=== PATIENT | female | born 1980 | race Caucasian/White ===

== ENCOUNTER 2017-04-06 12:23 | Emergency (ER) | payer OTHER ==
[~2017-04-06] VITALS: Ht 165.1 cm; Wt 95.9 kg
[~2017-04-06 12:23] MED LIST: ALBUAER2 INH; CYAN100020 PO; NAPR220T PO; PRLSR20 PO
[2017-04-06 12:45] VITALS: TEMP 37; Ht 165.1 cm; Wt 95.9 kg
[2017-04-06 13:29] VITALS: BP 122/76; PULSE 76; O2SAT 99
--- NOTE | 2017-04-06 13:50 | DIAGNOSTIC IMAGING REPORT ---
R HAND MIN 3 VIEWS ROUTINE HISTORY: 36 years-old Female R hand pain acute right hand pain COMPARISON: None available TECHNIQUE: 3 views of the right hand FINDINGS: There is no acute fracture, subluxation or significant degenerative changes. No opaque foreign body or significant soft tissue swelling. IMPRESSION: No acute fracture or subluxation. The above report was generated using voice recognition software. It may contain grammatical, syntax or spelling errors. Electronically signed by: Marcus Izaguirre M.D. 04/06/2017 1:49 PM Dictated Date/Time: 04/06/2017 1:48 PM
--- NOTE | 2017-04-06 18:30 | EMERGENCY ROOM VISIT NOTE ---
ED Visit Note First contact with patient: 12:56 CHIEF COMPLAINT: Right Hand pain and discoloration HISTORY OF PRESENT ILLNESS: This 36-year-old white female patient injured her right hand last evening when she accidentally struck it against her son while playing. The pain is constant and worse with any movement of the hand. Pain is primarily at the fifth metacarpal base. Ecchymosis and edema have developed. There was no audible cracking sound at the time of the injury. No numbness or tingling. No prior history of significant hand injury. [id number]. Pain is 5/10. No treatment yet. REVIEW OF SYSTEM: HEENT: No dizziness, visual problems, hearing loss, or tinnitus. There is no difficulty swallowing and no oral lesions are present. PULMONARY: No cough, shortness of breath, sputum production or hemoptysis. CARDIOVASCULAR: No chest pain, palpitations, shortness of breath or peripheral edema. GASTROINTESTINAL: No diarrhea, constipation, nausea, vomiting, or abdominal pain. NEUROLOGIC: No weakness, muscle tenderness, epilepsy or history of neurological problems. MUSCULOSKELETAL: No history of joint tenderness/swelling. No history of arthritis or arthralgias. SKIN: No rashes or lesions. ENDOCRINE: No history of diabetes, thyroid disorders, or abnormal hair growth. Supplemental sheet was reviewed. Previous surgeries: Tonsillectomy Medical history: Significant for asthma and GERD Family history: Significant for hypertension and cancer. Parents are living. Current medications: Reviewed and filed in patient's chart Allergies: NKDA SOCIAL HISTORY: Patient lives at home with her and children. Positive tobacco use, positive EtOH use. Unemployed. PHYSICAL EXAM: Vital Signs: Afebrile. Reviewed and filed in patient's chart. General: Well-developed, well-nourished, young white female, in no obvious discomfort. No acute distress. She is sitting on the bed. Alert and oriented. Skin: Warm and dry with good turgor. No rashes or lesions. Developing ecchymosis and edema over the fifth metacarpal dorsally. No involvement of the palm. No erythema. The patient is not diaphoretic. No abrasions. Musculoskeletal: The dorsum of the hand is diffusely swollen and tender on the ulnar border. Flexion and extension of the fingers is full and strong. No pain with palpation of the distal radius, distal ulna, anatomic snuffbox, or carpal bones. No pain with palpation over the palmar surface of her fifth metacarpal or fourth metacarpal. She does have pain with palpation over the dorsal and ulnar border of the fifth metacarpal. Neurologic: Gross sensation is intact across each of the fingers by soft touch. Peripheral pulses are 2+. EMERGENCY DEPARTMENT COURSE: Radiographic images obtained today of the right hand were reviewed by me and read by radiology. They Revealed soft tissue swelling but no fractures. DIAGNOSIS: Right Hand contusion DISCHARGE INSTRUCTIONS & TREATMENT: Patient was educated regarding today's findings. Conservative care measures were discussed. Rest the hand and keep it inactive for 2 to 3 days until the pain and swelling subside. Ice and elevate frequently to reduce pain and swelling. Ibuprofen, 600 mg every 6 hours for pain. Add Tylenol every 6 hours as needed for breakthrough pain. Keep the hand elevated when possible. She was placed in Tubigrip for edema control and will use this for the next several days. Contusion handout was provided. Followup with your PCP if not improving over the next 7-10 days. Current/Historical Medications Scheduled Albuterol (Ventolin), 2 PUFFS INH QID Cyanocobalamin (Vitamin B12), 5,000 MCG PO DAILY Omeprazole (Prilosec), 20 MG PO DAILY Scheduled PRN Naproxen Sodium (Aleve), 440 MG PO UD PRN for Pain Allergies Coded Allergies: No Known Allergies (Verified , 10/27/12) Vital Signs Date Time Temp Pulse Resp B/P (MAP) Pulse Ox O2 Delivery O2 Flow Rate FiO2 04/06/17 13:29 76 20 122/76 99 04/06/17 12:45 37.0 92 18 140/93 97 Room Air Departure Information Impression Primary Impression: Contusion of right hand, initial encounter Dispostion Home / Self-Care Condition GOOD Forms HOME CARE DOCUMENTATION FORM, MOTRIN USE, TYLENOL USE, IMPORTANT VISIT INFORMATION Patient Instructions My [facility] Additional Instructions Ice and elevate frequently to reduce pain and swelling Tylenol 1000mg and Motrin 600 mg every 6 hours as needed for discomfort Gentle motion daily Follow-up with your PCP as needed
== END 2017-04-06 13:30 | disposition home or self-care (01) ==
LOC: C.EDB 12:24 → C.EDD 13:30
DX: S60.221A Contusion of right hand, initial encounter (principal); W51.XXXA Accidental striking against or bumped into by another person, initial encounter; Y92.9 Unspecified place or not applicable; J45.909 Unspecified asthma, uncomplicated; K21.9 Gastro-esophageal reflux disease without esophagitis; Z82.49 Family history of ischemic heart disease and other diseases of the circulatory system; Z80.9 Family history of malignant neoplasm, unspecified; Z72.0 Tobacco use